=== PATIENT | male | born 1930 | race Caucasian/White ===

== ENCOUNTER → 2017-05-23 | Outpatient (REF) | payer MEDICARE, BC ==
[~2017-05-23] MED LIST: /WARF2TA PO; AMIO20TA PO; AMLO5TAB2 PO; BIMA01SOL OU; DORZ2SOL5 OD; ESOM1CAP5 PO; HYDR12.56 PO; HYDR12CA PO; LOTR2AER3 TOP; LOVE0.8I SC; LUMIGAN OS; METF500T PO; METF500T13 PO; METO-398 PO; METO100T3 PO; MULTTAB4 PO; OMEP20CA3 PO; PACE0.05 PO; PRAV20TA2 PO; PRAV40TA2 PO; RAMI10CA PO; TEKT150T PO; TERA1CA PO; TERA2CAP3 PO; TIMO5OPG OS; TIMO5OPG OU; TIMOLOL MALEATE OD; VITMTA PO; WARF2.5T38 PO; WARF4TAB51 PO; WARF4TAB52 PO
== END ==
LOC: M LABDRWAD 09:09
PROVIDERS: ATTEND Internal Medicine Cardiovascular Disease
DX: D64.9 Anemia, unspecified (principal)

== ENCOUNTER 2019-12-15 11:39 | Day surgery (SDC) | payer MEDICARE, BC ==
[~2019-12-15] VITALS: Ht 170.2 cm; Wt 95.3 kg
[~2019-12-15 11:39] MED LIST changes: -/WARF2TA PO; +ALIS150T PO; +AMIO200T22 PO; -AMIO20TA PO; +AMLO5TAB6 PO; +CARD120C3 PO; +COUM1TAB16 PO; +FLOM0.4C39 PO; -METO-398 PO; +METO200T28 PO; +NEXI40CA PO; +RAMI1CAP26 PO; -TEKT150T PO; -TERA1CA PO; +TERA1CAP46 PO; +TIMO0.5S7 OS; +TIMO0.5S7 OU; -TIMO5OPG OS; -TIMO5OPG OU
[2019-12-15] MEDS ORDERED: NS 1,000 ML IV ONE (14:00)
[2019-12-15] MEDS ORDERED: propofoL 500 MG/50 ML VIAL As Ordered ONE (14:24)
[2019-12-15] MEDS ORDERED: LIDOCAINE 2% INJ 100 MG/5 ML SDV (FOR ANES.) As Ordered ONE (14:24)
[2019-12-15] MEDS ORDERED: ESMOLOL INJ 100MG/10ML VIAL As Ordered ONE (14:40)
[2019-12-15] MEDS ORDERED: METOPROLOL 5 MG/5 ML VIAL As Ordered ONE (14:54)
--- NOTE | 2019-12-15 15:00 | ROOR ---
Patient Name: Jerome Toure Procedure Date: 12/15/2019 2:24 PM Date of : 1930 Age: 89 Room: [facility] Gender: Male Note Status: Finalized Procedure: Colonoscopy Indications: High risk colon cancer surveillance: Personal history of colonic polyps Providers: Bud LAMB MD Referring MD: GEOVANNA VELA DO Requesting Provider: Medicines: Monitored Anesthesia Care Complications: No immediate complications. Procedure: Pre-Anesthesia Assessment: - The heart rate, respiratory rate, oxygen saturations, blood pressure, adequacy of pulmonary ventilation, and response to care were monitored throughout the procedure. The Colonoscope was introduced through the anus and advanced to the cecum, identified by appendiceal orifice and ileocecal valve. The colonoscopy was performed without difficulty. The patient tolerated the procedure well. The quality of the bowel preparation was good. Findings: The perianal and digital rectal examinations were normal. There was evidence of a prior surgical anastomosis at the appendiceal orifice. This was characterized by healthy appearing mucosa. A 5 mm polyp was found in the ascending colon. The polyp was sessile. The polyp was removed with a cold snare. Resection and retrieval were complete. Three sessile polyps were found in the proximal sigmoid colon (within 3-5 cm of Tattoo). The polyps were 3 to 5 mm in size. These polyps were removed with a cold snare. Resection and retrieval were complete. Two sessile polyps were found in the rectum. The polyps were 3 to 5 mm in size. These polyps were removed with a cold snare. Resection and retrieval were complete. Small Internal Hemorrhoids. Multiple medium-mouthed diverticula were found in the sigmoid colon. Impression: - Surgical anastomosis, characterized by healthy appearing mucosa. - One 5 mm polyp in the ascending colon, removed with a cold snare. Resected and retrieved. - A tattoo was seen in the proximal sigmoid colon. Three 3 to 5 mm polyps found within 3 cm of tattoo. The polyps were removed with a cold snare. Resected and retrieved. - Two 3 to 5 mm polyps in the rectum, removed with a cold snare. Resected and retrieved. - Small Internal Hemorrhoids. - Diverticulosis in the sigmoid colon. Recommendation: - Telephone endoscopist for pathology results in 2 weeks. - Resume Coumadin (warfarin) at prior dose tomorrow. Bud Lamb MD Bud LAMB MD 12/15/2019 3:00:22 PM Electronically signed by Bud LAMB MD Number of Addenda: 0 Note Initiated On: 12/15/2019 2:24 PM Estimated Blood Loss: Estimated blood loss: none.
[2019-12-15 15:20] VITALS: BP 133/87
== END 2019-12-15 15:27 | disposition home or self-care (01) ==
LOC: M OPP 11:39
PROVIDERS: ATTEND Internal Medicine Gastroenterology
DX: Z12.11 Encounter for screening for malignant neoplasm of colon (principal); Z86.010 Personal history of colon polyps; Z98.0 Intestinal bypass and anastomosis status; D12.2 Benign neoplasm of ascending colon; D12.5 Benign neoplasm of sigmoid colon; K62.1 Rectal polyp; K57.30 Diverticulosis of large intestine without perforation or abscess without bleeding; K64.8 Other hemorrhoids; I48.91 Unspecified atrial fibrillation; G47.30 Sleep apnea, unspecified; Z79.899 Other long term (current) drug therapy